=== PATIENT | male | born 1965 | race Caucasian/White ===

== ENCOUNTER 2021-09-19 15:41 | Emergency (ER) | payer OTHER ==
[2021-09-19 16:39] VITALS: BP 150/95; PULSE 91
[2021-09-19] MEDS ORDERED: Bacitracin Oint 1 GM U/D Packet TOP ONE (16:40)
[2021-09-19] MEDS ORDERED: Lidocaine 1% 5 ML VIAL INJECT ONE (16:41)
[2021-09-19] MEDS ORDERED: ceFAZolin 1 GM Vial IM ONE (18:26)
== END 2021-09-19 19:10 | disposition home or self-care (01) ==
LOC: JP.ED 15:41
DX: S68.621A Partial traumatic transphalangeal amputation of left index finger, initial encounter (principal); F17.210 Nicotine dependence, cigarettes, uncomplicated; W31.1XXA Contact with metalworking machines, initial encounter; Y99.0 Civilian activity done for income or pay
CPT/HCPCS: 12002; 73140; 99283; J0690; 99281

== ENCOUNTER 2021-09-23 06:08 | Day surgery (SDC) | payer OTHER, BC ==
[2021-09-23 06:51] LABS: ESTIMATED GFR 104 mL/min (>60)
[2021-09-23] MEDS ORDERED: Bupivacaine 0.5% 30 ML SDV ONE (06:52)
[2021-09-23] MEDS ORDERED: Lactated Ringers 1,000 ML IV SCH (07:15)
[2021-09-23] MEDS ORDERED: Nozin Nasal Sanitizer NASBOTH ONE (07:15)
[2021-09-23] MEDS ORDERED: Propofol 200 MG/20 ML SDV ONE (07:20)
[2021-09-23] MEDS ORDERED: Midazolam 1 MG/ML 2 ML SDV ONE (07:20)
[2021-09-23] MEDS ORDERED: fentaNYL 100 MCG/2 ML SDV ONE (07:20)
[2021-09-23] MEDS ORDERED: ceFAZolin 1 GM in Premix Bag 1 BAG IV ONE (07:30)
[2021-09-23 09:30] VITALS: BP 110/77; PULSE 61
== END 2021-09-23 09:43 | disposition home or self-care (01) ==
LOC: JP.SDS 06:08
PROVIDERS: ATTEND Specialist
DX: M87.044 Idiopathic aseptic necrosis of right finger(s) (principal); L02.511 Cutaneous abscess of right hand; F17.210 Nicotine dependence, cigarettes, uncomplicated; Z20.822 Contact with and (suspected) exposure to COVID-19
CPT/HCPCS: 36415; 80053; 85027; A9270-GY; J0690; J2250; J2704; J3010; J3490; J7120; U0002

== ENCOUNTER 2024-01-10 06:12 | Emergency (ER) | payer BC | END 2024-01-10 06:31 | disposition EXP | LOC: JP.ED 06:12 | DX: I46.9 Cardiac arrest, cause unspecified (principal); Z88.8 Allergy status to other drugs, medicaments and biological substances | CPT/HCPCS: 92950; 99285; 99285-25 ==